=== PATIENT | female | born 1980 | race Hispanic/Latino ===

== ENCOUNTER 2016-07-20 02:25 | Emergency (ER) | payer OTHER ==
[~2016-07-20] VITALS: Ht 165.1 cm; Wt 65.8 kg
--- NOTE | 2016-07-20 02:36 | ED GI/GU/ABDOMINAL COMPLAINT ---
History of Present Illness General Chief Complaint: Abdominal Pain/Flank Pain Stated Complaint: ABD PAIN Source: patient Exam Limitations: no limitations Vital Signs & Intake/Output Vital Signs & Intake/Output Vital Signs Date Time Temp Pulse Resp B/P Pulse O2 O2 Flow FiO2 Ox Delivery Rate 07/20 0241 98.0 132 20 130/68 95 Room Air Allergies Coded Allergies: NO KNOWN ALLERGIES (07/20/16) Reconcile Medications Ibuprofen 600 MG TABLET 1 TAB PO TID PRN PAIN with food Oxycodone HCl/Acetaminophen (Percocet 5-325 MG Tablet) 5 MG-325 MG TABLET 1 TAB PO 4XDP PRN PAIN TEN...[id number] Triage Nurses Notes Reviewed? yes ? n Is pt currently ? No Onset: Abrupt Duration: hour(s): Timing: recent history Quality/Severity: sharpness Location: suprapubic Radiation: no radiation Activities at Onset: none Prior Abdominal Problems: none Modifying Factors: Worsens With: palpation, vomiting. Associated Symptoms: abdominal pain HPI: 36-year-old woman in prior good health presents with suprapubic pain that began at 10:30 PM, approximately 4-1/2 hours ago. She notes mild nausea, several episodes of vomiting, normal bowel movements, no diarrhea. She notes mild dysuria but no hematuria. No back pain. She is otherwise well and has no other concerns. Past History Travel History Traveled to [place] past 21 day No Medical History Any Pertinent Medical History? see below for history Surgical History Surgical History: hysterectomy, tubal ligation Psychosocial History What is your primary language Filipino Family History Hx Contributory? No Review of Systems Review of Systems Constitutional: Reports: no symptoms. EENTM: Reports: no symptoms. Respiratory: Reports: no symptoms. Cardiovascular: Reports: no symptoms. GI: Reports: no symptoms. Genitourinary: Reports: no symptoms. Musculoskeletal: Reports: no symptoms. Skin: Reports: no symptoms. Neurological/Psychological: Reports: no symptoms. Hematologic/Endocrine: Reports: no symptoms. Immunologic/Allergic: Reports: no symptoms. All Other Systems: Reviewed and Negative Physical Exam Physical Exam General Appearance: well developed/nourished, moderate distress Head: atraumatic, normal appearance Eyes: Bilateral: normal appearance. Ears, Nose, Throat, Mouth: hearing grossly normal Neck: normal inspection, supple, full range of motion, normal alignment Respiratory: normal breath sounds, chest non-tender, no respiratory distress Cardiovascular: regular rate/rhythm Gastrointestinal: normal bowel sounds, soft, small abdominal wall hernias, 2cm, at right aspect of section scar. easily reducable. small hernia also palpable, 1-2cm at left lateral aspect of scar. . No rebound no guarding. No right lower quadrant tenderness no right upper quadrant tenderness. No Flynn sign Back: normal inspection, normal range of motion Extremities: normal range of motion Neurologic/Psych: no motor/sensory deficits, awake, alert, oriented x 3 Skin: intact, normal color, warm/dry Core Measures ACS in differential dx? No Severe Sepsis Present: No Septic Shock Present: No Progress Differential Diagnosis: kidney stone, pancreatitis, UTI/pyelo Plan of Care: Orders Procedure Date/time Status URINALYSIS 07/20 233 Complete LIPASE 07/20 233 Complete HEPATIC FUNCTION PANEL 07/20 233 Complete HUMAN BETA HCG SCREEN 07/20 233 Complete CBC WITHOUT DIFFERENTIAL 07/20 233 Complete BASIC METABOLIC PANEL 07/20 233 Complete AMYLASE 07/20 233 Complete Laboratory Tests 07/20/16 0453: Urinalysis LIGHT H, Urine Color STRAW, Urine Clarity CLEAR, Urine pH 6.0, Ur Specific Robbins <= 1.005, Urine Protein NEG, Urine Ketones NEG, Urine Nitrite NEG, Urine Bilirubin NEG, Urine Urobilinogen 0.2, Ur Leukocyte Esterase NEG, Ur Microscopic SEDIMENT EXAMINED, Urine RBC 1-3, Ur Epithelial Cells FEW, Urine Hemoglobin SMALL H, Urine Glucose NEG 07/20/16 0310: Anion Gap 9, Estimated GFR > 60, BUN/Creatinine Ratio 15.7, Glucose 95, Calcium 8.8, Total Bilirubin 1.0, Direct Bilirubin 0.4, AST 30, ALT 44, Alkaline Phosphatase 106, Total Protein 6.7, Albumin 3.9, Amylase 43, Lipase 97, Total Beta HCG NEGATIVE, CBC w Diff NO MAN DIFF REQ, RBC 4.69, MCV 88.3, MCH 29.8, RDW 12.0, MPV 9.2, Gran % 88.2 H, Lymphocytes % 7.8 L, Monocytes % 3.6, Eosinophils % 0.3, Basophils % 0.1, Absolute Granulocytes 10.2 H, Absolute Lymphocytes 0.9 L, Absolute Monocytes 0.4, Absolute Eosinophils 0, Absolute Basophils 0, PUBS MCHC 33.8 Diagnostic Imaging: Viewed by Me: CT Scan. Discussed w/RAD: CT Scan. Radiology Impression: abd/pelvic ct... no acute disease... full report below. Initial ED EKG: none Comments: PATIENT: ROBIN CLINE PRESENT AGE: 36 PATIENT ACCOUNT NO: [id number] : 78 LOCATION: [facility] ORDERING PHYSICIAN: LIEN HALL MD SERVICE DATE: 07/20/16 EXAM TYPE: CAT - CT ABD & PELVIS W/O IV CONTRAS EXAMINATION: CT ABDOMEN AND PELVIS WITHOUT CONTRAST CLINICAL INFORMATION: Lower abdominal pain, question kidney stones COMPARISON: None TECHNIQUE: Multidetector volumetric imaging was performed from the superior aspect of the liver through the pubic symphysis. Sagittal and coronal reformatted images were obtained on the technologist's workstation. DLP: 312.40 mGy-cm FINDINGS: LUNG BASES: The visualized lung bases are unremarkable. LIVER, GALLBLADDER, AND BILIARY TREE: The liver is normal in size, shape, and attenuation. No focal hepatic lesion or biliary ductal dilatation is present. The gallbladder is unremarkable with no evidence of radiopaque gallstones, gallbladder wall thickening, or obvious pericholecystic inflammatory changes. PANCREAS: Unremarkable. SPLEEN: Unremarkable. ADRENAL GLANDS: Unremarkable. KIDNEYS AND URETERS: The kidneys are normal in size, shape, and attenuation. No hydronephrosis, hydroureter, or calculi seen. No perinephric stranding. BLADDER: Unremarkable. GASTROINTESTINAL TRACT: The small and large bowel are unremarkable. The appendix is unremarkable. ABDOMINAL WALL: No significant hernia is appreciated. LYMPH NODES: Normal. VASCULAR: Unremarkable. PELVIC VISCERA: Unremarkable. OSSEOUS STRUCTURES: Unremarkable. IMPRESSION: No acute findings identified in the abdomen/pelvis. No renal/ureteral calculi or hydronephrosis. DICTATED BY: SIMONA VIDAL MD DATE/TIME DICTATED:07/20/16401 PLAN MANAGER:RAO DATE/TIME TRANSCRIBED:07/20/16401 CONFIDENTIAL, DO NOT COPY WITHOUT APPROPRIATE AUTHORIZATION. <Electronically signed in Other Vendor System> SIGNED BY: SIMONA VIDAL MD 07/20/16411 Departure Departure Disposition: HOME OR SELF CARE Condition: Stable Clinical Impression Primary Impression: Abdominal pain Secondary Impressions: Abdominal hernia Referrals: FAISAL HANKS,KAJAL Morris (PCP/Family) Departure Forms: Customer Survey General Discharge Information Prescriptions: Current Visit Scripts Ibuprofen 1 TAB PO TID PRN PAIN #30 TAB with food Oxycodone HCl/Acetaminophen (Percocet 5-325 MG Tablet) 1 TAB PO 4XDP PRN PAIN #10 TAB TEN...[id number] Comments 07/20/16, 5:37am... pt feeling better after supportive medications... small hernias palpable. Pt safe for discharge. Pt referred to dr. blue for further evaluation. Pt instructed to return if symptoms recur. Sent rx for ibuprofen and small amount of percocet for comfort.
[2016-07-20 03:43] LABS: ABSOLUTE BASOPHIL COUNT 0 /CUMM (0.0-0.2); ABSOLUTE EOSINOPHIL COUNT 0 /CUMM (0.0-0.7); ABSOLUTE GRANULOCYTE CT 10.2 /CUMM (1.4-6.5); ABSOLUTE LYMPH COUNT 0.9 /CUMM (1.2-3.4); ABSOLUTE MONOCYTE COUNT 0.4 /CUMM (0.10-0.60); BASOPHIL % 0.1 % (0.0-2.0); EOSINOPHIL % 0.3 % (0-5); GRANULOCYTE % 88.2 % (42.2-75.2); HEMATOCRIT 41.5 % (37-47); MEAN CORPUSCULAR HGB 29.8 PG (27.0-31.0); MEAN CORPUSCULAR HGB CONC 33.8 G/DL (33.0-37.0); MEAN CORPUSCULAR VOLUME 88.3 FL (81.0-99.0); MEAN PLATELET VOLUME 9.2 FL (7.4-10.4); PLATELET COUNT 219 /CUMM (130-400); RED BLOOD CELL CT 4.69 /CUMM (4.20-5.40); WHITE BLOOD CELL COUNT 11.5 /CUMM (4.8-10.8)
--- NOTE | 2016-07-20 04:12 | CT SCAN REPORT ---
EXAMINATION: CT ABDOMEN AND PELVIS WITHOUT CONTRAST CLINICAL INFORMATION: Lower abdominal pain, question kidney stones COMPARISON: None TECHNIQUE: Multidetector volumetric imaging was performed from the superior aspect of the liver through the pubic symphysis. Sagittal and coronal reformatted images were obtained on the technologist's workstation. DLP: 312.40 mGy-cm FINDINGS: LUNG BASES: The visualized lung bases are unremarkable. LIVER, GALLBLADDER, AND BILIARY TREE: The liver is normal in size, shape, and attenuation. No focal hepatic lesion or biliary ductal dilatation is present. The gallbladder is unremarkable with no evidence of radiopaque gallstones, gallbladder wall thickening, or obvious pericholecystic inflammatory changes. PANCREAS: Unremarkable. SPLEEN: Unremarkable. ADRENAL GLANDS: Unremarkable. KIDNEYS AND URETERS: The kidneys are normal in size, shape, and attenuation. No hydronephrosis, hydroureter, or calculi seen. No perinephric stranding. BLADDER: Unremarkable. GASTROINTESTINAL TRACT: The small and large bowel are unremarkable. The appendix is unremarkable. ABDOMINAL WALL: No significant hernia is appreciated. LYMPH NODES: Normal. VASCULAR: Unremarkable. PELVIC VISCERA: Unremarkable. OSSEOUS STRUCTURES: Unremarkable. IMPRESSION: No acute findings identified in the abdomen/pelvis. No renal/ureteral calculi or hydronephrosis.
[2016-07-20] MEDS ORDERED: PERCOCET 5-3251 EACH PO (05:32)
[2016-07-20] MEDS ORDERED: IBUPROFEN600 M1 PO (05:32)
[2016-07-20 05:40] VITALS: BP 124/64
== END 2016-07-20 05:41 ==
LOC: ERH 02:25
PROVIDERS: Pediatrics
DX: K46.9 Unspecified abdominal hernia without obstruction or gangrene (principal)
CPT/HCPCS: 74176; 81001; 96361; 96374; 96375; J1885; J2405